=== PATIENT | female | born 1960 | race Caucasian/White ===

== ENCOUNTER 2018-12-12 09:01 | Emergency (ER) | payer MEDICARE, OTHER ==
[~2018-12-12] VITALS: Ht 167.6 cm; Wt 105.9 kg
--- NOTE | 2018-12-12 09:15 | NUR ---
PRIOR TO ROOMING PT SHE STATES SHE HAS BEEN HAVING CP THIS AM. ORDER PLACED FOR EKG ALONG WITH SEPSIS ORDER SET
[2018-12-12] MEDS ORDERED: methylPREDNISolone sod succ 125mg/2ml vial IV ONE (09:25)
[2018-12-12] MEDS ORDERED: ketorolac tromethamine 15mg/ml inj. IV ONE (09:35)
[2018-12-12 10:25] LABS: BASOPHILS % (AUTO) 0.3 % (0-1); EOSINOPHILS # (AUTO) 0.1 X10'3 (0-0.9); EOSINOPHILS % (AUTO) 1.2 % (0-6); HEMATOCRIT 37.4 % (35.0-45.0); HEMOGLOBIN 12.9 g/dl (12.0-16.0); LYMPHOCYTES # (AUTO) 0.8 X10'3 (1.1-4.8); LYMPHOCYTES % (AUTO) 9.5 % (21-51); MEAN CORPUSCULAR HEMOGLOBIN 32.8 PG (27.0-31.0); MEAN CORPUSCULAR HGB CONC 34.4 % (33.0-36.5); MEAN CORPUSCULAR VOLUME 95.4 FL (78-98); MEAN PLATELET VOLUME 8.4 FL (7.4-10.4); MONOCYTES # (AUTO) 0.7 X10'3 (0-0.9); MONOCYTES % (AUTO) 7.4 % (2-12); NEUTROPHILS # (AUTO) 7.2 X10'3 (1.8-7.7); NEUTROPHILS % (AUTO) 81.6 % (42-75); PLATELET COUNT 258 X10'3 (140-440); RED BLOOD COUNT 3.92 X10'6 (4.20-5.60); RED CELL DISTRIBUTION WIDTH 14.5 % (11.5-14.5); WHITE BLOOD COUNT 8.9 X10'3 (4.5-11.0)
[2018-12-12] MEDS ORDERED: diphenhydrAMINE 25mg capsule PO ONE (10:35)
[2018-12-12 10:38] LABS: ALANINE AMINOTRANSFERASE 50 U/L (12-78); ALBUMIN 3.9 G/DL (3.4-5.0); ALKALINE PHOSPHATASE 98 IU/L (46-116); ANION GAP 9 (8-16); ASPARTATE AMINO TRANSFERASE 44 U/L (10-37); BILIRUBIN,TOTAL 0.6 MG/DL (0.1-1.0); BLOOD UREA NITROGEN 8 MG/DL (7-18); BUN/CREATININE RATIO 11.4 (6.6-38.0); CALCIUM 8.7 MG/DL (8.5-10.1); CHLORIDE 97 MMOL/L (99-107); GLUCOSE 98 MG/DL (70-104); PARTIAL THROMBOPLASTIN TIME 37 SECONDS (22-32); POTASSIUM 3.3 MMOL/L (3.5-5.1); PROTHROMBIN TIME 9.9 SECONDS (9.0-12.0); SODIUM 136 MMOL/L (135-145); TOTAL CARBON DIOXIDE 29.8 MMOL/L (24-32); TOTAL PROTEIN 7.7 G/DL (6.4-8.2); eGFR 86 ML/MIN
[2018-12-12 10:47] LABS: TROPONIN I < 0.04 NG/ML (0.0-0.05)
--- NOTE | 2018-12-12 10:47 | NUR ---
PT MEDICATED WITH BENADRYL PER ORDERS, PT INSTRUCTED STILL NEED A URINE SAMPLE, PT STATES WILL TRY IN LIKE 5 MIN,
[2018-12-12 11:26] LABS: CLARITY,URINE SLIGHTLY CLOUDY (Clear); COLOR,URINE YELLOW (Yellow); GLUCOSE, URINE NEGATIVE (Neg); KETONES,URINE NEGATIVE (Neg); LEUKOCYTE ESTERASE ,URINE SMALL (Neg); NITRITES, URINE NEGATIVE (Neg); OCCULT BLOOD,URINE NEGATIVE (Neg); PROTEIN,URINE NEGATIVE (Neg); UROBILINOGEN,URINE 0.2 E.U/dL (0.2-1.0)
[2018-12-12 11:29] LABS: UA COLLECTION TYPE CLN CATCH MIDSTREAM
[2018-12-12 11:36] LABS: SQUAMOUS EPITHELIAL CELL,UR MANY /LPF (FEW)
[2018-12-12 11:37] LABS: MUCUS STRANDS FEW /LPF (Neg); TRANSITIONAL EPI CELLS,URINE FEW /HPF
[2018-12-12 11:38] LABS: BACTERIA,URINE FEW /HPF (Neg)
[2018-12-12 11:39] LABS: RBC,URINE 0-2 /HPF (0-2); WBC,URINE 20-30 /HPF (0-4)
[2018-12-12] MEDS ORDERED: PRED10TA23 PO (11:55)
[2018-12-12] MEDS ORDERED: CETI10TA15 PO (11:55)
[2018-12-12 12:11] VITALS: BP 150/94
== END 2018-12-12 12:18 | disposition home or self-care (01) ==
LOC: ER 09:03
DX: T78.3XXA Angioneurotic edema, initial encounter (principal); R07.9 Chest pain, unspecified; R11.0 Nausea; I10 Essential (primary) hypertension; G43.909 Migraine, unspecified, not intractable, without status migrainosus
CPT/HCPCS: 36415; 71045; 80053; 81001; 83605; 83880; 84145; 84484; 85025; 85610; 85730; 87040; 93005; 96374; 96375; 99284; J1885; J2930; Q0163

== ENCOUNTER 2018-12-30 16:58 | Emergency (ER) | payer MEDICARE, OTHER ==
[~2018-12-30] VITALS: Ht 167.6 cm; Wt 105.1 kg
[~2018-12-30 16:58] MED LIST: CETI10TA15 PO
[2018-12-30 18:21] LABS: BASOPHILS % (AUTO) 0.1 % (0-1); EOSINOPHILS % (AUTO) 0.8 % (0-6); HEMATOCRIT 37.9 % (35.0-45.0); HEMOGLOBIN 13.1 g/dl (12.0-16.0); LYMPHOCYTES # (AUTO) 1.4 X10'3 (1.1-4.8); LYMPHOCYTES % (AUTO) 27.8 % (21-51); MEAN CORPUSCULAR HEMOGLOBIN 32.8 PG (27.0-31.0); MEAN CORPUSCULAR HGB CONC 34.5 g/dL (33.0-36.5); MEAN PLATELET VOLUME 8.3 FL (7.4-10.4); MONOCYTES # (AUTO) 0.6 X10'3 (0-0.9); MONOCYTES % (AUTO) 11.7 % (2-12); NEUTROPHILS # (AUTO) 3.1 X10'3 (1.8-7.7); NEUTROPHILS % (AUTO) 59.6 % (42-75); PLATELET COUNT 284 X10'3 (140-440); RED BLOOD COUNT 3.99 X10'6 (4.20-5.60); RED CELL DISTRIBUTION WIDTH 14.3 % (11.5-14.5); WHITE BLOOD COUNT 5.1 X10'3 (4.5-11.0)
[2018-12-30 18:22] VITALS: BP 154/111
[2018-12-30 18:36] LABS: ALANINE AMINOTRANSFERASE 55 U/L (12-78); ALBUMIN 3.6 G/DL (3.4-5.0); ALBUMIN/GLOBULIN RATIO 0.9 (1.1-1.5); ALKALINE PHOSPHATASE 119 IU/L (46-116); ANION GAP 10 (8-16); ASPARTATE AMINO TRANSFERASE 36 U/L (10-37); BILIRUBIN,TOTAL 0.3 MG/DL (0.1-1.0); BLOOD UREA NITROGEN 10 MG/DL (7-18); BUN/CREATININE RATIO 11.5 (6.6-38.0); CHLORIDE 98 MMOL/L (99-107); CREATININE 0.87 MG/DL (0.40-0.90); GLUCOSE 93 MG/DL (70-104); POTASSIUM 3.7 MMOL/L (3.5-5.1); SODIUM 137 MMOL/L (135-145); TOTAL PROTEIN 7.4 G/DL (6.4-8.2); eGFR 67 ML/MIN
[2018-12-30] MEDS ORDERED: iohexol 300mg/ml 100ml inj. ONE (19:52)
[2018-12-30] MEDS ORDERED: morphine 4 MG/ML inj SYRINge IV ONE (20:30)
[2018-12-30] MEDS ORDERED: ondansetron/PF 4mg/2ml inj IV ONE (20:30)
[2018-12-30] MEDS ORDERED: diphenhydrAMINE 50 mg/ml inj IV ONE (21:00)
== END 2018-12-30 21:22 | disposition home or self-care (01) ==
LOC: ER 16:58
DX: R22.0 Localized swelling, mass and lump, head (principal); G43.909 Migraine, unspecified, not intractable, without status migrainosus; Z79.899 Other long term (current) drug therapy; Z87.891 Personal history of nicotine dependence
CPT/HCPCS: 36415; 70491; 80053; 83605; 85025; 87040; 96374; 96375; 99284; J1200; J2270; J2405; Q9967

== ENCOUNTER → 2019-04-23 | Emergency (ER) | payer MEDICARE, OTHER ==
[~2019-04-23] VITALS: Ht 160 cm; Wt 120.0 kg
[~2019-04-23] MED LIST changes: +LIDOcaine Viscous 15ml cup MM PRN; +dexamethasone sod phosphate 10mg/ml inj IM STA
--- NOTE | 2019-04-23 17:57 | NUR ---
i took strep a rapid to he lab
[2019-04-23 19:49] VITALS: BP 135/92
== END | disposition home or self-care (01) ==
LOC: ER 16:02
DX: J02.9 Acute pharyngitis, unspecified (principal); J06.9 Acute upper respiratory infection, unspecified; G43.909 Migraine, unspecified, not intractable, without status migrainosus
CPT/HCPCS: 87081; 87880; 96372; 99283; J1100

== ENCOUNTER 2020-05-04 10:13 | Emergency (ER) | payer OTHER, MEDICARE ==
[~2020-05-04] VITALS: Ht 167.6 cm; Wt 107.3 kg
[~2020-05-04 10:13] MED LIST changes: -LIDOcaine Viscous 15ml cup MM PRN; -dexamethasone sod phosphate 10mg/ml inj IM STA
[2020-05-04 11:23] LABS: BASOPHILS % (AUTO) 0.1 % (0-1); EOSINOPHILS % (AUTO) 0.5 % (0-6); HEMATOCRIT 37.4 % (35.0-45.0); HEMOGLOBIN 12.5 g/dl (12.0-16.0); LYMPHOCYTES # (AUTO) 1.5 X10'3 (1.1-4.8); LYMPHOCYTES % (AUTO) 16.7 % (21-51); MEAN CORPUSCULAR HEMOGLOBIN 31.9 PG (27.0-31.0); MEAN CORPUSCULAR HGB CONC 33.5 g/dL (33.0-36.5); MEAN CORPUSCULAR VOLUME 95.1 FL (78-98); MEAN PLATELET VOLUME 8.4 FL (7.4-10.4); MONOCYTES # (AUTO) 0.8 X10'3 (0-0.9); MONOCYTES % (AUTO) 8.7 % (2-12); NEUTROPHILS # (AUTO) 6.7 X10'3 (1.8-7.7); PLATELET COUNT 308 X10'3 (140-440); RED BLOOD COUNT 3.93 X10'6 (4.20-5.60); RED CELL DISTRIBUTION WIDTH 15.8 % (11.5-14.5)
[2020-05-04 11:28] LABS: ALANINE AMINOTRANSFERASE 34 U/L (12-78); ALBUMIN 3.2 G/DL (3.4-5.0); ALBUMIN/GLOBULIN RATIO 0.8 (1.1-1.5); ALKALINE PHOSPHATASE 119 IU/L (46-116); ANION GAP 9 (8-16); ASPARTATE AMINO TRANSFERASE 25 U/L (10-37); BILIRUBIN,TOTAL 0.3 MG/DL (0.1-1.0); BLOOD UREA NITROGEN 11 MG/DL (7-18); BUN/CREATININE RATIO 10.8 (6.6-38.0); CALCIUM 8.4 MG/DL (8.5-10.1); CHLORIDE 100 MMOL/L (99-107); CREATININE 1.02 MG/DL (0.40-0.90); GLUCOSE 121 MG/DL (70-104); SODIUM 138 MMOL/L (135-145); TOTAL CARBON DIOXIDE 29.1 MMOL/L (24-32); TOTAL PROTEIN 7.1 G/DL (6.4-8.2); eGFR 55 ML/MIN
[2020-05-04] MEDS ORDERED: potassium Cl 20 mEq SR tablet PO ONE (11:30)
[2020-05-04 11:31] LABS: POTASSIUM 2.8 MMOL/L (3.5-5.1)
[2020-05-04] MEDS ORDERED: GUAI100L97 PO (12:02)
[2020-05-04] MEDS ORDERED: acetaminophen 325mg tablet PO ONE (12:40)
[2020-05-04 12:50] VITALS: BP 138/97
== END 2020-05-04 12:54 | disposition home or self-care (01) ==
LOC: ER 10:14
DX: R05 Cough (principal); R50.9 Fever, unspecified; R19.7 Diarrhea, unspecified; M79.18 Myalgia, other site; R11.0 Nausea; Z20.828 Contact with and (suspected) exposure to other viral communicable diseases; G43.909 Migraine, unspecified, not intractable, without status migrainosus; Z98.890 Other specified postprocedural states
CPT/HCPCS: 36415; 71045; 80053; 85025; 99284; U0003

== ENCOUNTER 2020-07-12 13:08 | Emergency (ER) | payer OTHER, MEDICARE ==
[~2020-07-12] VITALS: Ht 167.6 cm; Wt 120.5 kg
[~2020-07-12 13:08] MED LIST changes: +GUAI100L97 PO
[2020-07-12] MEDS ORDERED: ketorolac tromethamine 15mg/ml inj. IM ONE (14:55)
[2020-07-12] MEDS ORDERED: ketorolac tromethamine 15mg/ml inj. IV ONE (14:55)
[2020-07-12] MEDS ORDERED: normal saline 1000ml 1,000 ML IV ONE (14:55)
[2020-07-12] MEDS ORDERED: ketorolac trometh. 30mg/ml inj. IV ONE (14:55)
[2020-07-12 15:33] LABS: BASOPHILS # (AUTO) 0.1 X10'3 (0-0.2); BASOPHILS % (AUTO) 0.7 % (0-1); EOSINOPHILS % (AUTO) 0.3 % (0-6); HEMOGLOBIN 13.9 g/dl (12.0-16.0); LYMPHOCYTES # (AUTO) 2.3 X10'3 (1.1-4.8); LYMPHOCYTES % (AUTO) 21.2 % (21-51); MEAN CORPUSCULAR HEMOGLOBIN 33.1 PG (27.0-31.0); MEAN CORPUSCULAR VOLUME 97.2 FL (78-98); MEAN PLATELET VOLUME 8.3 FL (7.4-10.4); MONOCYTES # (AUTO) 0.8 X10'3 (0-0.9); MONOCYTES % (AUTO) 7.1 % (2-12); NEUTROPHILS # (AUTO) 7.5 X10'3 (1.8-7.7); NEUTROPHILS % (AUTO) 70.7 % (42-75); PLATELET COUNT 364 X10'3 (140-440); RED BLOOD COUNT 4.22 X10'6 (4.20-5.60); RED CELL DISTRIBUTION WIDTH 16.9 % (11.5-14.5); WHITE BLOOD COUNT 10.6 X10'3 (4.5-11.0)
[2020-07-12 15:47] LABS: ALBUMIN 3.6 G/DL (3.4-5.0); ANION GAP 7 (8-16); BLOOD UREA NITROGEN 12 MG/DL (7-18); CALCIUM 9.3 MG/DL (8.5-10.1); CHLORIDE 102 MMOL/L (99-107); GLUCOSE 112 MG/DL (70-104); POTASSIUM 3.2 MMOL/L (3.5-5.1); SODIUM 138 MMOL/L (135-145); TOTAL CARBON DIOXIDE 28.8 MMOL/L (24-32); TROPONIN I < 0.04 NG/ML (0.0-0.05); eGFR 73 ML/MIN
[2020-07-12 15:49] LABS: D-DIMER < 0.19 MG/L FEU (0-0.50)
[2020-07-12 16:11] VITALS: BP 152/94
[2020-07-12] MEDS ORDERED: potassium Cl 20 mEq SR tablet PO ONE (16:15)
== END 2020-07-12 16:36 | disposition home or self-care (01) ==
LOC: ER 13:09
DX: E87.6 Hypokalemia (principal); G43.909 Migraine, unspecified, not intractable, without status migrainosus; Z00.00 Encounter for general adult medical examination without abnormal findings; Z98.890 Other specified postprocedural states; Z88.5 Allergy status to narcotic agent; Z79.899 Other long term (current) drug therapy
CPT/HCPCS: 36415; 71045; 80048; 84484; 85025; 85379; 87635; 93005; 96372; 99285; J1885

== ENCOUNTER 2020-09-29 10:51 | Emergency (ER) | payer OTHER, MEDICARE ==
[~2020-09-29] VITALS: Ht 172.7 cm; Wt 140.0 kg
[2020-09-29 11:45] VITALS: BP 132/80
[2020-09-29] MEDS ORDERED: famotidine 20mg tablet PO ONE (12:25)
[2020-09-29] MEDS ORDERED: predniSONE 20 mg tablet PO ONE (12:25)
[2020-09-29] MEDS ORDERED: PRED20TA PO (12:27)
[2020-09-29] MEDS ORDERED: DIPH25CA83 PO (12:27)
[2020-09-29] MEDS ORDERED: FAMO-128 PO (12:27)
[2020-09-29] MEDS ORDERED: acetaminophen 325mg tablet PO ONE (13:10)
== END 2020-09-29 18:50 | disposition home or self-care (01) ==
LOC: ER 10:52
DX: L50.8 Other urticaria (principal); T43.015A Adverse effect of tricyclic antidepressants, initial encounter; G43.909 Migraine, unspecified, not intractable, without status migrainosus; G89.29 Other chronic pain; Z88.5 Allergy status to narcotic agent; Z79.899 Other long term (current) drug therapy; Y92.89 Other specified places as the place of occurrence of the external cause
CPT/HCPCS: 99283; J7512

== ENCOUNTER 2021-01-19 10:30 | Emergency (ER) | payer OTHER, MEDICARE ==
[~2021-01-19] VITALS: Ht 167.6 cm; Wt 102.9 kg
[~2021-01-19 10:30] MED LIST changes: +DIPH25CA83 PO; +FAMO-128 PO
[2021-01-19] MEDS ORDERED: clindamycin 600mg/D5W 50ml 50 ML IV ONE (11:10)
[2021-01-19] MEDS ORDERED: ondansetron/PF 4mg/2ml inj IV ONE (11:10)
[2021-01-19] MEDS ORDERED: HYDROcodone/acetaminophen 5mg/325mg tablet PO ONE (11:10)
[2021-01-19] MEDS ORDERED: iohexol 300mg/ml 100ml inj. ONE (11:21)
[2021-01-19 11:30] LABS: BASOPHILS % (AUTO) 0.3 % (0-1); EOSINOPHILS % (AUTO) 0.4 % (0-6); HEMATOCRIT 41.3 % (35.0-45.0); HEMOGLOBIN 14.2 g/dl (12.0-16.0); LYMPHOCYTES # (AUTO) 1.3 X10'3 (1.1-4.8); MEAN CORPUSCULAR HEMOGLOBIN 31.8 PG (27.0-31.0); MEAN CORPUSCULAR HGB CONC 34.4 g/dL (33.0-36.5); MEAN CORPUSCULAR VOLUME 92.4 FL (78-98); MONOCYTES # (AUTO) 0.8 X10'3 (0-0.9); MONOCYTES % (AUTO) 7.7 % (2-12); NEUTROPHILS % (AUTO) 78.6 % (42-75); PLATELET COUNT 315 X10'3 (140-440); RED BLOOD COUNT 4.47 X10'6 (4.20-5.60); RED CELL DISTRIBUTION WIDTH 13.4 % (11.5-14.5); WHITE BLOOD COUNT 10.2 X10'3 (4.5-11.0)
[2021-01-19 11:49] LABS: ALANINE AMINOTRANSFERASE 50 U/L (12-78); ALBUMIN 3.5 G/DL (3.4-5.0); ALBUMIN/GLOBULIN RATIO 0.8 (1.1-1.5); ALKALINE PHOSPHATASE 130 IU/L (46-116); ANION GAP 9 (8-16); ASPARTATE AMINO TRANSFERASE 32 U/L (10-37); BILIRUBIN,TOTAL 0.3 MG/DL (0.1-1.0); BLOOD UREA NITROGEN 4 MG/DL (7-18); BUN/CREATININE RATIO 5.3 (6.6-38.0); CHLORIDE 100 MMOL/L (99-107); CREATININE 0.76 MG/DL (0.40-0.90); GLUCOSE 119 MG/DL (70-104); POTASSIUM 3.1 MMOL/L (3.5-5.1); SODIUM 136 MMOL/L (135-145); TOTAL CARBON DIOXIDE 27.4 MMOL/L (24-32); TOTAL PROTEIN 7.8 G/DL (6.4-8.2); eGFR 78 ML/MIN
[2021-01-19] MEDS ORDERED: potassium Cl 20 mEq SR tablet PO ONE (12:00)
[2021-01-19] MEDS ORDERED: ONDA4TAB6 PO (14:20)
[2021-01-19] MEDS ORDERED: HYDR-3965 PO (14:20)
[2021-01-19] MEDS ORDERED: CEPH250T PO (14:20)
[2021-01-19] MEDS ORDERED: SULF1TAB45 PO (14:20)
[2021-01-19 14:30] VITALS: BP 160/62
== END 2021-01-19 16:00 | disposition home or self-care (01) ==
LOC: ER 10:31 → EDBD 10:31 → ER 16:00
DX: K13.0 Diseases of lips (principal); L03.211 Cellulitis of face; M54.2 Cervicalgia; G43.909 Migraine, unspecified, not intractable, without status migrainosus; G89.29 Other chronic pain; Z98.890 Other specified postprocedural states; Z88.5 Allergy status to narcotic agent; Z79.2 Long term (current) use of antibiotics; Z79.899 Other long term (current) drug therapy
CPT/HCPCS: 36415; 70491; 80053; 83605; 84145; 85025; 87040; 96365; 96375; 99285; J2405; Q9967; 99284; J3490

== ENCOUNTER 2021-03-01 10:27 | Emergency (ER) | payer OTHER, MEDICARE ==
[~2021-03-01] VITALS: Ht 170.2 cm; Wt 104.0 kg
[~2021-03-01 10:27] MED LIST changes: +ONDA4TAB6 PO
[2021-03-01 11:03] LABS: BASOPHILS % (AUTO) 0.3 % (0-1); EOSINOPHILS # (AUTO) 0.1 X10'3 (0-0.9); EOSINOPHILS % (AUTO) 0.4 % (0-6); HEMATOCRIT 39.8 % (35.0-45.0); HEMOGLOBIN 13.2 g/dl (12.0-16.0); LYMPHOCYTES # (AUTO) 1.8 X10'3 (1.1-4.8); LYMPHOCYTES % (AUTO) 14.3 % (21-51); MEAN CORPUSCULAR HEMOGLOBIN 30.3 PG (27.0-31.0); MEAN CORPUSCULAR VOLUME 91.5 FL (78-98); MEAN PLATELET VOLUME 9.2 FL (7.4-10.4); MONOCYTES # (AUTO) 1.1 X10'3 (0-0.9); MONOCYTES % (AUTO) 8.7 % (2-12); NEUTROPHILS # (AUTO) 9.5 X10'3 (1.8-7.7); NEUTROPHILS % (AUTO) 76.3 % (42-75); PLATELET COUNT 305 X10'3 (140-440); RED BLOOD COUNT 4.35 X10'6 (4.20-5.60); RED CELL DISTRIBUTION WIDTH 14.3 % (11.5-14.5); WHITE BLOOD COUNT 12.4 X10'3 (4.5-11.0)
[2021-03-01 11:25] LABS: ALANINE AMINOTRANSFERASE 53 U/L (12-78); ALBUMIN 4.1 G/DL (3.4-5.0); ALKALINE PHOSPHATASE 102 IU/L (46-116); ANION GAP 13 (8-16); BILIRUBIN,TOTAL 0.9 MG/DL (0.1-1.0); BLOOD UREA NITROGEN 12 MG/DL (7-18); BUN/CREATININE RATIO 14.5 (6.6-38.0); CALCIUM 9.2 MG/DL (8.5-10.1); CHLORIDE 100 MMOL/L (99-107); CREATININE 0.83 MG/DL (0.40-0.90); GLUCOSE 106 MG/DL (70-104); POTASSIUM 3.4 MMOL/L (3.5-5.1); SODIUM 138 MMOL/L (135-145); TOTAL CARBON DIOXIDE 24.8 MMOL/L (24-32); TOTAL PROTEIN 8.2 G/DL (6.4-8.2); eGFR 70 ML/MIN
[2021-03-01 11:41] LABS: ASPARTATE AMINO TRANSFERASE 44 U/L (10-37)
--- NOTE | 2021-03-01 11:48 | NUR ---
PATIENT STATES SHE IS UNABLE TO URINATE AT THIS TIME. DRINKING WATER.
--- NOTE | 2021-03-01 13:20 | NUR ---
PT STATES THAT SHE CAN NOT GIVE A URINE. PT REFUSED A STRAIGHT CATH. DR CHAMBERS NOTIVIED AND PT GIVEN WATER TO DRINK
--- NOTE | 2021-03-01 14:05 | NUR ---
PT FINISHED HER 1L WATER AND STATES THAT SHE ATTEMPTED TO GIVE A URINE SAMPLE AND WAS STILL UNABLE. PT CONTINUES TO REFUSED A STRAIGHT CATH. DR CHAMBERS NOTIFIED
[2021-03-01 14:49] LABS: CLARITY,URINE SLIGHTLY CLOUDY (Clear); COLOR,URINE STRAW (Yellow); GLUCOSE, URINE NEGATIVE (Neg); KETONES,URINE 15 mg/dl (Neg); LEUKOCYTE ESTERASE ,URINE TRACE (Neg); NITRITES, URINE NEGATIVE (Neg); OCCULT BLOOD,URINE MODERATE (Neg); PH,URINE 6.5 (4.8-8.0); PROTEIN,URINE NEGATIVE (Neg); UA COLLECTION TYPE CLN CATCH MIDSTREAM; UROBILINOGEN,URINE 0.2 E.U/dL (0.2-1.0)
[2021-03-01 14:58] LABS: WBC,URINE 0-4 /HPF (0-4)
[2021-03-01 14:59] LABS: BACTERIA,URINE FEW /HPF (Neg); MUCUS STRANDS NONE SEEN /LPF (Neg); SQUAMOUS EPITHELIAL CELL,UR FEW /LPF (FEW)
[2021-03-01 15:00] LABS: URINE AMPHETAMINE SCREEN POSITIVE (Neg); URINE BARBITUATE SCREEN NEGATIVE (Neg); URINE BENZODIAZEPINES SCREEN NEGATIVE (Neg); URINE CANNABINOID SCREEN POSITIVE (Neg); URINE COCAINE SCREEN NEGATIVE (Neg); URINE METHADONE SCREEN NEGATIVE (Neg); URINE OPIATE SCREEN NEGATIVE (Neg); URINE PHENCYCLIDINE SCREEN NEGATIVE (Neg)
[2021-03-01 15:33] VITALS: BP 120/89
== END 2021-03-01 15:35 | disposition home or self-care (01) ==
LOC: ER 10:28
DX: R22.0 Localized swelling, mass and lump, head (principal); D72.829 Elevated white blood cell count, unspecified; R06.02 Shortness of breath; R19.7 Diarrhea, unspecified; G43.909 Migraine, unspecified, not intractable, without status migrainosus; I10 Essential (primary) hypertension; G89.29 Other chronic pain; F12.90 Cannabis use, unspecified, uncomplicated; Z86.14 Personal history of Methicillin resistant Staphylococcus aureus infection; Z98.890 Other specified postprocedural states; Z88.5 Allergy status to narcotic agent; Z79.899 Other long term (current) drug therapy
CPT/HCPCS: 36415; 71045; 80053; 80305; 81001; 85025; 87088; 99284